=== PATIENT | male | born 1980 | race Hispanic/Latino ===

== ENCOUNTER 2021-08-09 20:03 | Emergency (ER) | payer BC ==
[~2021-08-09] VITALS: Ht 177.8 cm; Wt 74.8 kg
[2021-08-09 20:12] VITALS: BP 150/79
[2021-08-09] MEDS ORDERED: ACETAMINOPHEN 500 MG TABLET ONE (20:30)
[2021-08-09] MEDS ORDERED: LORA10TA7 PO (21:13)
[2021-08-09] MEDS ORDERED: FLUT16H NASAL (21:13)
[2021-08-09] MEDS ORDERED: CHOL400T14 PO (21:13)
[2021-08-09] MEDS ORDERED: GUAIFENESIN-CODEINE 5 ML SYRUP ONE (21:13)
[2021-08-09] MEDS ORDERED: OSEL75 PO (21:13)
[2021-08-09] MEDS ORDERED: ACET-66 PO (21:13)
[2021-08-09] MEDS ORDERED: GUAIFENESIN-CODEINE 5 ML SYRUP PO ONE (21:30)
== END 2021-08-10 02:50 | disposition left against medical advice (07) ==
LOC: EDH 20:03
DX: U07.1 COVID-19 (principal); J10.1 Influenza due to other identified influenza virus with other respiratory manifestations
CPT/HCPCS: 87635; 87804 ×2; 87880; 99283; C9803

== ENCOUNTER 2021-08-11 04:22 | Emergency (ER) | payer BC ==
[~2021-08-11] VITALS: Ht 177.8 cm; Wt 76.3 kg
[~2021-08-11 04:22] MED LIST: ACET-66 PO; CHOL400T14 PO; FLUT16H NASAL; LORA10TA7 PO; OSEL75 PO
[2021-08-11 06:30] VITALS: BP 129/72
== END 2021-08-11 06:57 | disposition home or self-care (01) ==
LOC: EDH 04:22
DX: U07.1 COVID-19 (principal); Z79.899 Other long term (current) drug therapy
CPT/HCPCS: 87635; 87804 ×2; 87880; 99283; C9803